=== PATIENT | female | born 1950 | race Caucasian/White ===

== ENCOUNTER 2022-01-05 10:56 | Inpatient (IN) | payer OTHER ==
--- OUTSIDE RECORDS SUMMARY | 2022-01-05 10:59 | XMS REPORT | Continuity of Care Document ---
:1950 Author Organization [facility] t Address [address] [place] [address] Care Team Providers Name Role Phone Edna Melvin Attending Clinician Unavailable Problems This patient has no known problems. Allergies, Adverse Reactions, Alerts This patient has no known allergies or adverse reactions. Medications Ordered Filled Start Stop Current Ordering Indication Dosage Frequency Signature Comments Components Source Medication Medication Date Date Medication? Clinician (SIG) Name Name Fluconazole Fluconazole Edna Melvin 1 tablet Common 11-13 [facility] 00:00: 00:00 - [facility] 00 :00 [facility] Procedures This patient has no known procedures. Encounters Start End Encounter Admission Attending Care Care Encounter Source Date/Time Date/Time Type Type Clinicians Facility Department ID 2021-06-09 Outpatient Edna Melvin [facility] [id number] Common 11:28:24 [id number] [facility] 2021-06-09 [facility] [id number] 2 Common 11:18:11 [id number] [facility] 2020-10-23 2020-10-23 Outpatient [facility] [id number] Common 00:00:00 00:00:00 [facility] 2019-11-14 2019-11-14 [facility] [id number] Common 15:31:00 15:31:00 [facility] 2019-11-07 2019-11-07 [facility] [id number] Common 10:20:00 10:20:[address] [facility] 2019-11-05 2019-11-05 [facility] [id number] Common 08:50:00 08:50:[address] [facility] 2018-11-29 2018-11-29 [facility] [id number] Common 15:00:00 15:00:[address] [facility] 2018-04-17 2018-04-17 [facility] [id number] Common 09:49:00 09:49:[address] [facility] 2018-03-28 2018-03-28 [facility] [id number] Common 14:00:00 14:00:[address] [facility] 2018-01-02 2018-01-02 [facility] [id number] Common 15:00:00 15:00:[address] [facility] 2017-11-01 2017-11-01 [facility] [id number] Common 14:45:00 14:45:[address] [facility] Results This patient has no known results.
[2022-01-05] MEDS ORDERED: MORPHINE 4 MG/ML SYR ONE ×2 (12:30→15:46)
[2022-01-05] MEDS ORDERED: ONDANSETRON 4 MG/2 ML VIAL ONE ×2 (12:30→15:46)
[2022-01-05 12:50] LABS: Absolute Lymphocytes (CBC) 1.5 K/uL (0.7-4.9); Hematocrit 38.5 % (36.0-45.0); Lymphocytes % 19.3 % (15.3-44.8); MCV 85.8 fL (80-100); MPV 8.1 fL (7.6-11.3); RBC Red Blood Cell Count 4.49 M/uL (3.86-4.86)
[2022-01-05 13:03] LABS: Protime INR 0.97
--- NOTE | 2022-01-05 13:07 | RAD REPORT ---
EXAM DESCRIPTION: RAD - Chest Single View - 01/05/2022 12:57 pm CLINICAL HISTORY: edema COMPARISON: No comparisons FINDINGS: Lines: None. Lungs: No evidence of edema or pneumonia. Pleural: No significant pleural effusions or pneumothorax. Cardiac: The heart size is within normal limits. Bones: No acute fractures. Other: Bilateral hilar fullness, right greater than left. IMPRESSION: No acute cardiopulmonary disease. Hilar fullness, right greater than left. Consider ches t CT for further evaluation.
--- NOTE | 2022-01-05 13:51 | RAD REPORT ---
EXAM DESCRIPTION: US - Extrem Venous W Compress Boyd - 01/05/2022 1:42 pm CLINICAL HISTORY: SWELLING COMPARISON: No comparisons TECHNIQUE: Real-time sonographic evaluation of the lower extremity deep venous systems was performed using color Doppler, grayscale, and compression. FINDINGS: Bilateral lower extremities. Normal compressibility, flow augmentation, phasic flow and spontaneous flow is identified in both the left and right lower extremity deep venous systems. No intraluminal filling defects seen. IMPRESSION: No DVT in either lower extremity.
[2022-01-05 14:01] LABS: ALT/SGPT < 10 U/L (12-78); AST/SGOT 13 U/L (15-37); Alkaline Phosphatase 51 U/L (45-117); BUN Blood Urea Nitrogen 10 mg/dL (7-18); Bicarbonate 28 mmol/L (21-32); Bilirubin Direct 0.2 mg/dL (0-0.2); Bilirubin Total 0.7 mg/dL (0.2-1.0); Glomerular Filtration Rate 99 ml/min (=/>90); Glucose Level 107 mg/dL (74-106); Magnesium 2.2 mg/dL (1.8-2.4); NT PRO-BNP 186 pg/mL (<125); Potassium 3.7 mmol/L (3.5-5.1); Sodium Level 137 mmol/L (136-145); Troponin High Sensitivity 24.1 pg/mL (<58.9)
[2022-01-05 14:32] LABS: Urine Blood Trace-intact (Negative); Urine Glucose Negative (Negative); Urine Protein Negative (Negative); Urine Specific Gravity 1.015 (1.005-1.030); Urine pH 6.5 (5.0-7.0)
[2022-01-05] MEDS ORDERED: FUROSEMIDE 20 MG/ 2ML VIAL ONE (15:32)
--- NOTE | 2022-01-05 16:28 | ER ---
Nurse's Notes [facility] Name: Karyn Osorio Age: 71 yrs Sex: Female : 1950 Arrival Date: 01/05/2022 Time: 10:58 Bed 14 Private MD: Edna Melvin Diagnosis: Edema of the Legs Bilaterally;UTI Presentation: 01/05 11:37 Chief complaint: Patient states: she has been having swelling in her lower legs. it is ap3 reported the legs began swelling over some time, however the swelling increased significantly overnight. Coronavirus screen: At this time, the client does not indicate any symptoms associated with coronavirus-19. Ebola Screen: No symptoms or risks identified at this time. Initial Sepsis Screen: Does the patient meet any 2 criteria? No. Patient's initial sepsis screen is negative. Does the patient have a suspected source of infection? No. Patient's initial sepsis screen is negative. Risk Assessment: Do you want to hurt yourself or someone else? Patient reports no desire to harm self or others. Onset of symptoms was January 05, 2022. 11:37 Method Of Arrival: Wheelchair ap3 11:40 Acuity: MARVIN 3 ap3 Triage Assessment: 11:40 General: Appears in no apparent distress. Behavior is calm, cooperative. Pain: ap3 Complains of pain in right leg and left leg. Neuro: Level of Consciousness is awake, alert, Oriented to person, place, time, situation, Speech is normal. Cardiovascular: Patient's skin is warm and dry. Respiratory: Airway is patent Respiratory effort is even, unlabored. Musculoskeletal: Swelling present in right leg and left leg. Historical: - Allergies: 11:39 No Known Allergies; ap3 - PMHx: 11:39 None; ap3 - Immunization history:: Client reports receiving the 2nd dose of the Covid vaccine. - Social history:: Smoking status: Patient denies any tobacco usage or history of. Screenin:27 Abuse screen: Denies threats or abuse. Nutritional screening: No deficits noted. ap3 Tuberculosis screening: No symptoms or risk factors identified. Fall Risk None identified. Assessment: 12:00 Reassessment: No changes from previously documented assessment. Patient and/or family jg9 updated on plan of care and expected duration. Pain level reassessed. Patient is alert, oriented x 3, equal unlabored respirations, skin warm/dry/pink. 13:00 Reassessment: Patient and/or family updated on plan of care and expected duration. Pain jg9 level reassessed. Patient is alert, oriented x 3, equal unlabored respirations, skin warm/dry/pink. Patient states feeling better. Patient states symptoms have improved. 14:00 Reassessment: Patient and/or family updated on plan of care and expected duration. Pain jg9 level reassessed. Patient is alert, oriented x 3, equal unlabored respirations, skin warm/dry/pink. patient reports pain is starting to return. 15:00 Reassessment: Patient and/or family updated on plan of care and expected duration. Pain jg9 level reassessed. Patient is alert, oriented x 3, equal unlabored respirations, skin warm/dry/pink. Patient reports that she does not want to go home she can't take care of herself. 22:15 Reassessment: Patient transferred via hospital bed to room 425, report given to Faizan fong RN, patient and family verbalize understanding. Pt stable.. Vital Signs: 11:37 Pulse 86; Resp 17; Temp 98.3; Pulse Ox 98% ; Weight 83.91 kg; Height 5 ft. (152.40 cm); ap3 11:40 BP 143 / 68; ap3 12:45 BP 132 / 68; Pulse 86; Resp 17 S; Pulse Ox 97% on R/A; Pain 7/10; jg9 13:00 BP 146 / 74; Pulse 89; Resp 18; Pulse Ox 98% on R/A; jg9 14:30 BP 145 / 97; Pulse 90; Resp 16 S; Pulse Ox 99% ; Pain 5/10; jg9 17:00 BP 115 / 72; Pulse 91; Pulse Ox 96% on R/A; Pain 5/10; jg9 18:00 BP 118 / 56; Pulse 94; Resp 15 S; Pulse Ox 93% on R/A; aa9 22:02 BP 112 / 61; Pulse 84; Resp 15 S; Pulse Ox 94% on R/A; aa9 11:37 Body Mass Index 36.13 (83.91 kg, 152.40 cm) ap3 ED Course: 10:58 Patient arrived in ED. as 10:58 Edna Melvin MD is Private Physician. as 11:27 Arm band placed on right wrist. ap3 11:30 Triage completed. ap3 11:41 Patient has correct armband on for positive identification. Adult w/ patient. ap3 11:52 Shayne Paz MD is Attending Physician. kdr 11:52 Raghavendra Mclaughlin PA is PHCP. jmm 11:54 Samina Neff, RN is Primary Nurse. jg9 12:25 Inserted saline lock: 22 gauge in right antecubital area, using aseptic technique. jg9 Blood collected. 12:59 XRAY Chest (1 view) In Process Unspecified. EDMS 13:44 US Extremity Venous W Compression Boyd In Process Unspecified. EDMS 16:27 Cresencio Garbre is Hospitalizing Provider. m 18:30 Hospitalizing Provider role handed off by Cresencio Garber [facility] 18:30 Rivera Cedeño MD is Hospitalizing Provider. m 22:02 No provider procedures requiring assistance completed. aa9 22:13 Patient admitted, IV remains in place. aa9 Administered Medications: 12:30 Drug: morphine 4 mg Route: IVP; Infused Over: 4 mins; Site: right antecubital; jg9 13:30 Follow up: Response: No adverse reaction; Pain is decreased jg9 12:30 Drug: Zofran (Ondansetron) 4 mg Route: IVP; Site: right antecubital; jg9 14:38 Follow up: Response: No adverse reaction jg9 15:26 Drug: Lasix (furosemide) 20 mg Route: IVP; Site: right antecubital; jg9 17:04 Follow up: Response: No adverse reaction jg9 17:04 Drug: Rocephin (cefTRIAXone) 1 grams Route: IV; Rate: calculated rate; Site: right jg9 antecubital; 22:14 Follow up: Response: No adverse reaction; IV Status: Completed infusion aa9 17:05 Drug: morphine 4 mg {Note: RASS-0 pain 7/10 bilateral lower legs.} Route: IVP; Infused jg9 Over: 4 mins; Site: right antecubital; 22:13 Follow up: Response: No adverse reaction aa9 17:05 Drug: Zofran (Ondansetron) 4 mg Route: IVP; Site: right antecubital; jg9 22:03 Follow up: Response: No adverse reaction aa9 Medication: 22:12 VIS not applicable for this client. aa9 Outcome: 16:28 Decision to Hospitalize by Provider. derick 22:12 Admitted to Med/surg accompanied by kristina, via stretcher, Report called to Faizan MURPHY aa9 22:12 Condition: stable 22:12 Discharge instructions given to patient, family, Instructed on the need for admit, Demonstrated understanding of instructions, follow-up care. 22:16 Patient left the ED. aa9 Signatures: Dispatcher [employer] EDMS Shayne Paz MD MD kdr Mickail, Joel, PA PA jmm Martinez, Amelia as Prokisch, Amanda, RN RN ap3 Samina Neff RN RN jg9 Ximena Browning RN RN aa9 Corrections: (The following items were deleted from the chart) 11:23 Chief complaint: Patient states: she is having left abdominal and right flank ap3 pain. patient states the pain started about a week ago, however the pain has gotten increasingly worse. ap3 11:23 Coronavirus screen: At this time, the client does not indicate any symptoms ap3 associated with coronavirus-19. ap3 11:23 Ebola Screen: No symptoms or risks identified at this time. ap3 ap3 11:23 Initial Sepsis Screen: Does the patient meet any 2 criteria? No. Patient's ap3 initial sepsis screen is negative. Does the patient have a suspected source of infection? No. Patient's initial sepsis screen is negative. ap3 11:23 Risk Assessment: Do you want to hurt yourself or someone else? Patient reports no ap3 desire to harm self or others. ap3 : 11:23 Onset of symptoms was December 29, 2021 ap3 ap3 11:23 Method Of Arrival: Ambulatory ap3 ap3 11:23 Pulse 106bpm; Resp 18bpm; Pulse Ox 100%; Temp 98.2F; 84.37 kg; Height 5 ft. 1 ap3 in.; BMI: 35.1; ap3 11:27 BP 198 / 122 Manual; ap3 ap3 11:27 Acuity: MARVIN 2 ap3 ap3 11:25 Allergies: Sulfa (Sulfonamide Antibiotics); ap3 ap3 11:25 PMHx: Hypertensive disorder; ap3 ap3 11:25 PMHx: Lupus erythematosus; ap3 ap3 11:25 PMHx: CAD; ap3 ap3 11:25 Immunization history: Client reports receiving the 2nd dose of the Covid vaccine, ap3 ap3 11:25 Social history: Smoking status: Patient/guardian denies using tobacco, ap3 ap3 11:26 Social history: Patient uses street drugs, marijuana, ap3 ap3 11:26 General: Appears uncomfortable, Behavior is anxious, restless, ap3 ap3 11:26 Pain: Complains of pain in left lower quadrant Pain radiates to right low back ap3ap3 11:26 Neuro: Level of Consciousness is awake, alert, obeys commands, Oriented to ap3 person, place, time, situation, Speech is normal, ap3 11:26 Cardiovascular: Patient's skin is warm and dry. ap3 ap3 11:26 Respiratory: Airway is patent Respiratory effort is even, unlabored, Respiratory ap3 pattern is regular, symmetrical, ap3 14:40 13:00 Reassessment: Patient and/or family updated on plan of care and expected jg9 duration. Pain level reassessed. Patient is alert, oriented x 3, equal unlabored respirations, skin warm/dry/pink. jg9 14:40 12:45 BP 132 / 68; Pulse 86bpm; Resp 17bpm; Spontaneous; Pulse Ox 97% RA; jg9 jg9
--- NOTE | 2022-01-05 16:29 | EDPHYS ---
Physician Documentation [facility] Name: Karyn Osorio Age: 71 yrs Sex: Female : 1950 Arrival Date: 01/05/2022 Time: 10:58 Bed 14 Private MD: Edna Melvin ED Physician Shayne Paz HPI: 01/05 12:08 This 71 yrs old Female presents to ER via Wheelchair with complaints of Leg Swelling, jmm Trouble Walking. 12:08 The patient presents with swelling. Onset: The symptoms/episode began/occurred jmm gradually. This is a 71-year-old female with history of Parkinson's the presents emerged department with complaints of bilateral lower leg swelling beginning approximately 6 weeks ago but intensifies over the past day. Patient now is unable to walk. Denies chest pain or shortness of breath. Patient is currently taking carbidopa for Parkinson's.. Historical: - Allergies: 11:39 No Known Allergies; ap3 - PMHx: 11:39 None; ap3 - Immunization history:: Client reports receiving the 2nd dose of the Covid vaccine. - Social history:: Smoking status: Patient denies any tobacco usage or history of. ROS: 12:08 Constitutional: Negative for fever, chills, and weight loss, Cardiovascular: Negative jmm for chest pain, palpitations, and edema, Respiratory: Negative for shortness of breath, cough, wheezing, and pleuritic chest pain. 12:08 MS/extremity: Positive for swelling. 12:08 All other systems are negative. Exam: 12:08 Constitutional: This is a well developed, well nourished patient who is awake, alert, jmm and in no acute distress. Head/Face: atraumatic. Eyes: EOMI, no conjunctival erythema appreciated ENT: Moist Mucus Membranes Neck: Trachea midline, Supple Chest/axilla: Normal chest wall appearance and motion. Cardiovascular: Regular rate and rhythm. No edema appreciated Respiratory: Normal respirations, no respiratory distress appreciated Abdomen/GI: Non distended Back: Normal ROM Skin: General appearance color normal 12:08 Musculoskeletal/extremity: Bilateral swelling noted and edema, pitting edema appreciated bilaterally, full dorsalis pedis pulse bilaterally, compartments are soft, mildly tender to palpation, neurovascular intact. 12:08 Skin: Appearance: Color: normal in color, abscess. 12:08 Neuro: Orientation: is normal, Mentation: is normal, Memory: is normal. 12:08 Psych: Behavior/mood is pleasant, cooperative. Vital Signs: 11:37 Pulse 86; Resp 17; Temp 98.3; Pulse Ox 98% ; Weight 83.91 kg; Height 5 ft. (152.40 cm); ap3 11:40 BP 143 / 68; ap3 12:45 BP 132 / 68; Pulse 86; Resp 17 S; Pulse Ox 97% on R/A; Pain 7/10; jg9 13:00 BP 146 / 74; Pulse 89; Resp 18; Pulse Ox 98% on R/A; jg9 14:30 BP 145 / 97; Pulse 90; Resp 16 S; Pulse Ox 99% ; Pain 5/10; jg9 17:00 BP 115 / 72; Pulse 91; Pulse Ox 96% on R/A; Pain 5/10; jg9 18:00 BP 118 / 56; Pulse 94; Resp 15 S; Pulse Ox 93% on R/A; aa9 22:02 BP 112 / 61; Pulse 84; Resp 15 S; Pulse Ox 94% on R/A; aa9 11:37 Body Mass Index 36.13 (83.91 kg, 152.40 cm) ap3 MDM: 12:08 Patient medically screened. [facility] 16:26 Data reviewed: vital signs, nurses notes. Counseling: I had a detailed discussion with dercik the patient and/or guardian regarding: the historical points, exam findings, and any diagnostic results supporting the discharge/admit diagnosis, lab results, radiology results, the need for further work-up and treatment in the hospital. ED course: Labs and imaging studies were discussed with the patient. Patient has concern she will be unable to ambulate at home due to swelling. states he is unable to take care of her. I discussed the patient with nurse practitioner Gautam whom accepted the patient Dr. Jcarlos rincon. 01/05 12:09 Order name: Basic Metabolic Panel; Complete Time: 14:10 [facility] 01/05 12:09 Order name: CBC with Diff; Complete Time: 13:15 [facility] 01/05 12:09 Order name: LFT's; Complete Time: 14:10 [facility] 01/05 12:09 Order name: Magnesium; Complete Time: 14:10 [facility] 01/05 12:09 Order name: NT PRO-BNP; Complete Time: 14:10 [facility] 01/05 12:09 Order name: PT-INR; Complete Time: 13:15 [facility] 01/05 12:09 Order name: Troponin HS; Complete Time: 14:10 [facility] 01/05 14:33 Order name: Urine Dipstick-Ancillary; Complete Time: 15:04 [facility] 01/05 16:19 Order name: SARS RAPID; Complete Time: 17:15 [facility] 01/05 17:13 Order name: Urinalysis [facility] 01/05 17:13 Order name: Basic Metabolic Panel [facility] 01/05 17:13 Order name: Basic Metabolic Panel [facility] 01/05 17:13 Order name: CBC with Automated Diff [facility] 01/05 17:13 Order name: CBC with Automated Diff [facility] 01/05 12:09 Order name: XRAY Chest (1 view); Complete Time: 13:15 [facility] 01/05 12:09 Order name: EKG; Complete Time: 12:10 [facility] 01/05 12:11 Order name: US Extremity Venous W Compression Boyd; Complete Time: 13:55 [facility] 01/05 17:13 Order name: Heart Healthy [facility] 01/05 17:59 Order name: Echo with Doppler [facility] 01/05 18:06 Order name: Hemoglobin A1c [facility] 01/05 18:06 Order name: Lipid Profile [facility] 01/05 18:06 Order name: T4 Free [facility] 01/05 18:06 Order name: Thyroid Stimulating Hormone [facility] 01/05 18:10 Order name: Thorax Wo Con [facility] 01/05 12:09 Order name: Cardiac monitoring; Complete Time: 12:17 [facility] 01/05 12:09 Order name: EKG - Nurse/Tech; Complete Time: 12:17 [facility] 01/05 12:09 Order name: IV Saline Lock; Complete Time: 12:55 [facility] 01/05 12:09 Order name: Labs collected and sent; Complete Time: 12:55 [facility] 01/05 12:09 Order name: O2 Sat Monitoring; Complete Time: 12:17 [facility] 01/05 13:05 Order name: Labs - recollect needed: recollect green,lavender and blue top; Complete bd Time: 13:30 01/05 14:38 Order name: Urine Dipstick-Ancillary (obtain specimen); Complete Time: 14:38 jg9 Administered Medications: 12:30 Drug: morphine 4 mg Route: IVP; Infused Over: 4 mins; Site: right antecubital; jg9 13:30 Follow up: Response: No adverse reaction; Pain is decreased jg9 12:30 Drug: Zofran (Ondansetron) 4 mg Route: IVP; Site: right antecubital; jg9 14:38 Follow up: Response: No adverse reaction j9 15:26 Drug: Lasix (furosemide) 20 mg Route: IVP; Site: right antecubital; jg9 17:04 Follow up: Response: No adverse reaction jg9 17:04 Drug: Rocephin (cefTRIAXone) 1 grams Route: IV; Rate: calculated rate; Site: right jg9 antecubital; 22:14 Follow up: Response: No adverse reaction; IV Status: Completed infusion aa9 17:05 Drug: morphine 4 mg {Note: RASS-0 pain 7/10 bilateral lower legs.} Route: IVP; Infused jg9 Over: 4 mins; Site: right antecubital; 22:13 Follow up: Response: No adverse reaction aa9 17:05 Drug: Zofran (Ondansetron) 4 mg Route: IVP; Site: right antecubital; jg9 22:03 Follow up: Response: No adverse reaction aa9 Disposition Summary: 01/05/22 16:28 Hospitalization Ordered Hospitalization Status: Observation [facility] Location: Telemetry/[facility] (Inpatient) [facility] Condition: Stable [facility] Problem: new [facility] Symptoms: are unchanged [facility] Bed/Room Type: Standard [facility] Provider: Rivera Cedeño(01/05/22 18:30) [facility] Room Assignment: 425(01/05/22 21:42) eb1 Diagnosis - Edema of the Legs Bilaterally jmm - UTI [facility] Forms: - Medication Reconciliation Form [facility] - SBAR form [facility] Addendum: 01/07/2022 11:20 Co-signature as Attending Physician, Shayne Paz MD I agree with the assessment and k dr plan of care. Signatures: Dispatcher [employer] EDMS Annalisa Jordan Kevin, MD MD kdr Mickail, Joel, PA PA m Lizette Bello RN RN ap3 Lorie Frausto RN RN eb1 Samina Neff RN RN jg9 Ximena Browning RN aa9 Corrections: (The following items were deleted from the chart) 01/05 11:32 11:25 Allergies: Sulfa (Sulfonamide Antibiotics); ap3 ap3 11 11:25 PMHx: Hypertensive disorder; ap3 ap3 11 11:25 PMHx: Lupus erythematosus; ap3 ap3 11:25 PMHx: CAD; ap3 ap3 11: 11:25 Immunization history: Client reports receiving the 2nd dose of the Covid vaccine, ap3 ap3 11: 11:25 Social history: Smoking status: Patient/guardian denies using tobacco, ap3 ap3 11 11:26 Social history: Patient uses street drugs, marijuana, ap3 ap3 14:26 12:09 Oxygen Per Protocol ordered. derick jg9 18:30 16:28 Cresencio Garber 21:42 16:28 [facility] eb1
[2022-01-05] MEDS ORDERED: CEFTRIAXONE 1000 MG/VIAL ONE (16:53)
[2022-01-05] MEDS ORDERED: ACETAMINOPHEN 500 MG TAB PO PRN (17:07)
[2022-01-05] MEDS ORDERED: ONDANSETRON 4 MG/2 ML VIAL IV PRN (17:07)
[2022-01-05 17:12] LABS: SARS-CoV-2 Antigen Rapid Res Negative (Negative)
[2022-01-05] MEDS: ASPIRIN EC 81 MG TAB PO SCH (18:00)
--- NOTE | 2022-01-05 18:09 | P.HP ---
Certification for Inpatient Patient admitted to: Observation With expected LOS: <2 Midnights Patient will require the following post-hospital care: None Practitioner: I am a practitioner with admitting privileges, knowledge of patient current condition, hospital course, and medical plan of care. Services: Services provided to patient in accordance with Admission requirements found in Title 42 Section 412.3 of the Code of Federal Regulations Patient History Date of Service: 01/05/22 Reason for admission: BLE History of Present Illness: Patient is a 71-year-old female with a past medical history significant for Parkinson's disease, obesity who presents with complaint of bilateral lower extremity swelling that has been ongoing for approximately 6 weeks. Patient also reports bilateral lower extremity pain. Patient reports difficulty walking due to pain in her lower extremities. Redness and warmth noted on bilateral upper extremities. Patient rated pain as 10/10 and described pain as aching in quality. Patient reports associated signs and symptoms of dysuria . Patient denies any other signs and symptoms. Symptoms are aggravated by weight bearing\exertion and relieved by nothing. Patient decided to present to the hospital due to worsening symptoms. Allergies No Known Allergies Allergy (Verified 01/05/22 18:21) Home medications list reviewed: Yes Home Medications: Carbidopa/Levodopa [Carbidopa-Levo 25-100 mg Odt] 25 - 100 tab PO TID 01/05/22 Pramipexole [Mirapex*] 1 tab PO TID 01/05/22 - Past Medical/Surgical History -: Parkinson's disease -: Obesity Past Surgical History: Reviewed- Non-Contributory - Family History Family History: Reviewed- Non-Contributory - Social History Smoking Status: Never smoker Alcohol use: No CD- Drugs: No Caffeine use: Yes Place of Residence: Home Review of Systems General: Unremarkable Eyes: Unremarkable ENT: Unremarkable Respiratory: Unremarkable Cardiovascular: Edema Gastrointestinal: Unremarkable Genitourinary: Dysuria Musculoskeletal: Pedal edema, Other (Difficulty walking) Integumentary: Other (BLE redness) Neurological: Unremarkable Lymphatics: Unremarkable Physical Examination - Physical Exam General: Alert, In no apparent distress, Oriented x3 HEENT: Atraumatic, Normocephalic, PERRLA Neck: Supple, 2+ carotid pulse no bruit, JVD not distended Respiratory: Clear to auscultation bilaterally, Normal air movement Cardiovascular: Normal pulses, Normal S1 S2, Edema Capillary refill: <2 Seconds Gastrointestinal: Normal bowel sounds, Soft and benign Musculoskeletal: No clubbing, No contractures, No warmth, Swelling, Erythema Integumentary: No rashes, No breakdown, No significant lesion, Tenderness/swelling, Erythema Neurological: Normal speech, Normal tone, Abnormal gait Lymphatics: No axilla or inguinal lymphadenopathy - Studies Laboratory Data (last 24 hrs) 01/05/22 13:28: Sodium 137, Potassium 3.7, BUN 10, Creatinine 0.52 L, Glucose 107 H, Magnesium 2.2, Total Bilirubin 0.7, AST 13 L, ALT < 10 L, Alkaline Phosphatase 51 01/05/22 12:35: PT 10.7, INR 0.97 01/05/22 12:35: WBC 7.70, Hgb 13.0, Hct 38.5, Plt Count 318 Assessment and Plan - Plan --Bilateral lower extremity edema. Echocardiogram pending to rule out CHF. Patient placed on Lasix IV. Daily weight and strict I/O. --Bilateral lower extremity cellulitis. Blood cultures pending. Patient placed on antibiotics --Acute pain.. We will manage pain on current pain medication regimen. --Obesity. Likely secondary to sedentary lifestyle and excess calories intake. Patient counseled on weight reduction, diet and excise therapy. --Parkinson's disease. Continue home medications. --UTI POA. Continue antibiotics. Urine cultures pending. -- DVT prophylaxis with heparin subQ. Discharge Plan: Home Plan to discharge in: 48 Hours - Advance Directives Does patient have a Living Will: No Does patient have a Durable POA for Healthcare: No - Code Status/Comfort Care Code Status Assessed: Yes Code Status: Full Code Physician Review: Patient Assessed, Agree with Above Assessment and Plan Critical Care: No
[2022-01-05 19:30] LABS: Thyroid Stimulating Hormone 3.41 uIU/mL (0.360-3.740)
--- NOTE | 2022-01-05 19:59 | RAD REPORT ---
EXAM DESCRIPTION: CT - Thorax Wo Con - 01/05/2022 6:29 pm CLINICAL HISTORY: Bilateral hilar fullness COMPARISON: No comparisons FINDINGS: Chest Wall: No suspicious thyroid nodules or pathologic lymphadenopathy. Lungs: No acute abnormality. Pleura: No significant effusions or pneumothorax. Mediastinum/robbie: No pathologic lymphadenopathy. Pulmonary arteries/Aorta: Limited evaluation without contrast. No aortic aneurysm. Mild enlargement o f the main pulmonary arteries. Heart: No significant pericardial effusion. Mild cardiomegaly. Multi-vessel coronary artery disease. Upper abdomen: No acute abnormality. Cholecystectomy. Bones: No acute abnormality. All CT scans are performed using dose optimization technique as appropriate and may include automated exposure control or mA/KV adjustment according to patient size. IMPRESSION: No acute findings within the chest. Hilar fullness likely combination of prominent pulmo nary arteries and configuration of the patient's robbie. No lymphadenopathy.
[2022-01-05] MEDS: HYDROCODONE/APAP 5/325 MG TAB PO PRN (20:49)
[2022-01-05] MEDS ORDERED: HYDROCODONE/APAP 5/325 MG TAB ONE (21:00)
[2022-01-05] MEDS: PRAMIPEXOLE 0.25 MG TAB PO SCH (21:00)
[2022-01-05] MEDS ORDERED: HOME MED 1 EA UNK (Carbidopa/Levodopa [Carbidopa-Levo 25-100 Mg Odt] Tab.Rapdis) PO SCH (21:00)
[2022-01-05] MEDS: CARBIDOPA/LEVODOPA 25/100 TAB PO SCH (21:00)
[2022-01-05] MEDS ORDERED: ASPIRIN EC 81 MG TAB PO ONE (21:18)
[2022-01-06] MEDS: CLINDAMYCIN 600MG/D5W 600 MG/50 ML BAG IV SCH ×2 (01:00→08:41)
[2022-01-06] MEDS ORDERED: CLINDAMYCIN 600MG/D5W 600 MG/50 ML BAG IV ONE (01:09)
[2022-01-06] MEDS: HEPARIN 5000 UNIT/ML 1 ML VIAL SQ SCH ×3 (01:13→17:11)
[2022-01-06 02:30] LABS: Urine Bilirubin Negative (Negative); Urine Blood 1+ (Negative); Urine Clarity Clear (Clear); Urine Color Yellow (Yellow); Urine Glucose Negative (Negative); Urine Protein Negative (Negative); Urine Urobilinogen 0.2 mg/dL (0.2-1.0); Urine pH 5.5 (5.0-7.0)
[2022-01-06 02:55] LABS: Urine Bacteria 20-50 /HPF (<20); Urine RBC <5 /HPF (None Seen)
[2022-01-06 05:51] LABS: Absolute Lymphocytes (CBC) 1.2 K/uL (0.7-4.9); Hematocrit 38.2 % (36.0-45.0); Lymphocytes % 13.6 % (15.3-44.8); MCV 86.4 fL (80-100); MPV 8.4 fL (7.6-11.3); RBC Red Blood Cell Count 4.42 M/uL (3.86-4.86)
[2022-01-06 05:54] LABS: Potassium 3.5 mmol/L (3.5-5.1)
[2022-01-06] MEDS: HYDROCODONE/APAP 5/325 MG TAB PO PRN ×3 (06:23→19:41)
[2022-01-06] MEDS: PRAMIPEXOLE 0.25 MG TAB PO SCH ×3 (08:39→21:08)
[2022-01-06] MEDS: CARBIDOPA/LEVODOPA 25/100 TAB PO SCH ×3 (08:39→21:08)
[2022-01-06] MEDS: FUROSEMIDE 40 MG/4 ML VIAL IV SCH ×2 (08:40→17:11)
[2022-01-06] MEDS: ASPIRIN EC 81 MG TAB PO SCH (08:40)
[2022-01-06] MEDS ORDERED: POTASSIUM CL SA 10 MEQ TAB PO ONE (09:00)
[2022-01-06] MEDS ORDERED: CEFTRIAXONE 1,000 MG in NA CHLORIDE 0.9% 50 ML IVPB SCH (09:00)
[2022-01-06] MEDS: CEFEPIME 2 GM in NA CHLORIDE 0.9% 100 ML IV SCH (12:21)
--- NOTE | 2022-01-06 15:13 | EKG ---
Test Date: 2022-01-05 Test Time: 12:11:57 Desktop Support Technician: FRANDY MEASUREMENT RESULTS: Intervals: Rate: 89 IL: 228 QRSD: 120 QT: 392 QTc: 476 [place]: P: 76 [place]: 228 QRS: -48 T: 41 INTERPRETIVE STATEMENTS: Sinus rhythm with 1st degree AV block Left anterior fascicular block Left ventricular hypertrophy with QRS widening Nonspecific T wave abnormality Abnormal ECG No previous ECG available for comparison Electronically Signed On 01-06-22 15:12:17 CDT by Josemanuel Freeman
[2022-01-07] MEDS: CEFEPIME 2 GM in NA CHLORIDE 0.9% 100 ML IV SCH (01:22)
[2022-01-07] MEDS: HEPARIN 5000 UNIT/ML 1 ML VIAL SQ SCH ×2 (01:23→10:06)
--- NOTE | 2022-01-07 02:46 | P.PN ---
Date of Service: 01/06/22 Subjective: Pt patient still having significant lower extremity weakness. Edema has improved quite significantly. Neurology consultation pending. Physical therapy evaluation continue with antibiotic therapy for UTI. Physical Examination - Vitals reviewed - Physical Exam General: Alert, In no apparent distress, Oriented x3 Respiratory: Clear to auscultation bilaterally, Normal air movement Cardiovascular: Normal pulses, Normal S1 S2, Edema Gastrointestinal: Normal bowel sounds, Soft and benign Musculoskeletal: No clubbing, No contractures, No warmth, Swelling, Integumentary: No rashes, No breakdown, No significant lesion, Tenderness/swelling Neurological: generalized weakness Assessment and Plan - Plan --Bilateral lower extremity edema. Echocardiogram pending to rule out CHF. Patient placed on Lasix IV. Daily weight and strict I/O. --Bilateral lower extremity weakness; PT evaluation; L-spine. --Parkinson's disease. Continue home medications. --UTI; Continue antibiotics. Urine cultures pending. --DVT prophylaxis with heparin subQ. Discharge Plan: Home Plan to discharge in: 48 Hours - Advance Directives Does patient have a Living Will: No Does patient have a Durable POA for Healthcare: No - Code Status/Comfort Care Code Status Assessed: Yes Code Status: Full Code Physician Review: Patient Assessed, Agree with Above Assessment and Plan Critical Care: No
[2022-01-07] MEDS ORDERED: dexAMETHasone 4 MG/ML VIAL IV SCH (06:00)
[2022-01-07 06:19] LABS: Absolute Lymphocytes (CBC) 1.8 K/uL (0.7-4.9); Hematocrit 38.9 % (36.0-45.0); Lymphocytes % 22.7 % (15.3-44.8); MCV 83.8 fL (80-100); MPV 8.5 fL (7.6-11.3); RBC Red Blood Cell Count 4.64 M/uL (3.86-4.86)
[2022-01-07 06:32] LABS: Potassium 3.2 mmol/L (3.5-5.1)
[2022-01-07] MEDS ORDERED: POTASSIUM 25 MEQ EFFERV TAB PO ONE ×2 (09:00→19:00)
[2022-01-07] MEDS: FUROSEMIDE 40 MG/4 ML VIAL IV SCH (09:00)
[2022-01-07] MEDS: PRAMIPEXOLE 0.25 MG TAB PO SCH ×3 (10:06→20:26)
[2022-01-07] MEDS: ASPIRIN EC 81 MG TAB PO SCH (10:06)
[2022-01-07] MEDS: CARBIDOPA/LEVODOPA 25/100 TAB PO SCH ×3 (10:06→20:26)
[2022-01-07] MEDS: SIMETHICONE 80 MG TAB PO PRN (10:26)
--- NOTE | 2022-01-07 10:30 | ECHO ---
HEIGHT: 0 ft 5 in WEIGHT: 196 lb 3.2 oz DATE OF STUDY: 01/06/[address]: Dana Workman 2-DIMENSIONAL: YES M.MODE: YES DOPPLER: YES COLOR FLOW: YES TDS: NO PORTABLE: YES DEFINITY: NO BUBBLE STUDY: NO DIAGNOSIS: RULE OUT CONGESTIVE HEART FAILURE CARDIAC HISTORY: CATHERIZATION: NO SURGERY: NO PROSTHETIC VALVE: NO PACEMAKER: NO MEASUREMENTS (cm) DIASTOLIC (NORMALS) SYSTOLIC (NORMALS) IVSd 0.9 (0.6-1.2) LA Diam 2.5 (1.9-4.0) LVEF 56% LVIDd 3.4 (3.5-5.7) LVIDs 2.4 (2.0-3.5) %FS 28% LVPWd 1.0 (0.6-1.2) Ao Diam 2.5 (2.0-3.7) 2 DIMENSIONAL ASSESSMENT: RIGHT ATRIUM: NORMAL LEFT ATRIUM: NORMAL RIGHT VENTRICLE: NORMAL LEFT VENTRICLE: NORMAL TRICUSPID VALVE: MITRAL VALVE: NORMAL PULMONIC VALVE: NORMAL AORTIC VALVE: NORMAL PERICARDIAL EFFUSION: NONE AORTIC ROOT: NORMAL LEFT VENTRICULAR WALL MOTION: NORMAL DOPPLER/COLOR FLOW: SEE BELOW COMMENTS: NORMAL LEFT VENTRICULAR EJECTION FRACTION 55-60% WITH NORMAL WALL MOTION. MILD TRICUSPID REGURGITATION. RIGHT VENTRICULAR SYSTOLIC PRESSURE 30-33 mmHg, NORMAL. TECHNOLOGIST: Anne KRUEGER
--- NOTE | 2022-01-07 10:36 | P.PN ---
Subjective Date of Service: 01/07/22 Chief Complaint: Lower extremity weakness No change in patient's condition daughter present at the bedside apparently she has deteriorated over the past 3 weeks 3 of Parkinson's disease has ataxia so has difficulty swallowing at times and by neurologist her medication was changed recently adding to the daughter patient was self functioning until about a week ago no prior history of congestive heart failure Review of Systems General: Weakness Neurological: Weakness (Weakness of lower extremity) Physical Examination - Vital Signs Temperature: 97.7 F Blood Pressure: 166/80 Pulse: 85 Respirations: 16 Pulse Ox (%): 96 - Physical Exam General: Alert, Oriented x3 HEENT: Other Respiratory: Clear to auscultation bilaterally Cardiovascular: Normal S1 S2, Edema Gastrointestinal: Normal bowel sounds, Soft and benign Neurological: Other (Lower extremity weakness no other cranial nerve deficit) Assessment And Plan - Current Problems (Diagnosis) (1) Lower extremity edema Current Visit: Yes Status: Acute Plan: Patient is 71 years of age with a history of Parkinson's disease admitted with progressive worsening over the past 3 weeks planing of weakness of her legs unable to ambulate to that was self functioning has gotten worse and over the past week also developed lower extremity edema labs reviewed no evidence of sepsis mild hypokalemia suspect secondary to diuresis have added spironolactone lumbar spine CT is pending neurological consultation pending echo pending DC IV Lasix physical therapy vital signs otherwise stable Physician Review: Patient Assessed, Agree with Above Assessment and Plan
--- NOTE | 2022-01-07 11:09 | RAD REPORT ---
EXAM DESCRIPTION: CTSpine Lumbar Wo Con01/07/2022 7:51 am CLINICAL HISTORY: Leg numbness COMPARISON: None TECHNIQUE: Computed axial tomography lumbar spine was obtained with coronal and sagittal reconstruct ion. All CT scans are performed using dose optimization technique as appropriate and may include automated exposure control or mA/KV adjustment according to patient size. FINDINGS: No fracture is seen. No dislocation Mild anterior subluxation L5 on S1 Left lateral disc herniation L2-3. This narrows the left neural foramina. Disc bulge L3-4. Ligamentum flavum and facet hypertrophy. Mild narrowing of the thecal sac. Disc bulge and facet hypertrophy L4-5. Mild narrowing of the neural foramina bilaterally. Mild narrow ing of the thecal sac. Disc bulge and facet hypertrophy L5-S1. Thecal sac is not significantly narrowed. IMPRESSION: Left lateral disc herniation L2-3. MRI lumbar spine may be helpful for further evaluatio n
[2022-01-07] MEDS: SPIRONOLACTONE 25 MG TABLET PO SCH ×2 (11:18→20:26)
[2022-01-07 16:19] VITALS: BMI 38.3
--- NOTE | 2022-01-08 02:15 | CON ---
Date of Consultation: 01/07/2022 Reason: Parkinson's, gait failure, leg edema. History: 71-year-old lady with Parkinson's disease for several years; bradykinetic, dominant, right worse than left; has had moderately aggressive disease course over the time frame. Normally on the S inemet and Mirapex as she is taking currently 25/100 Sinemet t.i.d., Mirapex 0.25 t.i.d. Worsening s ymptoms, beginning about 6 weeks ago with worsening lower extremity edema, so we decreased the Mirape x as it can cause leg edema and we added COMT inhibitor, Ongentys, which proved to be too expensive a nd then, we switched that to Comtan, which did not really help her walking and the leg edema continue d to worsen despite the lower dose of the Mirapex, so she was back in my office just a week or 2 ago, and she was clearly more bradykinetic and worse, so we started reverting back to the prior dosing sc hedule. In the interim, legs continued to swell and she presented to the emergency department on the with exactly that complaint, worsening leg edema and difficulty walking, admitted to the hospit al. CT scan of the chest negative. Chest x-ray: Hilar fullness, negative on the CT as noted. Dopp ler: No DVT. She has been diuresing, the leg edema is better. Echo: Normal EF at 55% to 60%, norm al RV pressure. The patient cannot walk, and she cannot go home in this condition. CT of lumbar spi ne demonstrated no fracture. Left disk herniation, L2-3 with some foraminal narrowing, but she does not really have radicular symptoms. She has gait failure. Consultation was requested. Past Medical History: Parkinson's disease. Medications: Nexium, Zyrtec, Mirapex, Sinemet. Allergies: NONE. Social History: . Increasing difficulties with activities of daily living over the last 3-4 months, especially. Family History: Her mother had Parkinson's disease. Review of Systems: General: Chronically ill. Eyes: Denies. Ears, Nose, Throat: No dysarthria. No dysphagia. Cardiovascular: Leg edema. Pulmonary: Negative. GI: Nausea on 25/250 Sinemet. : Negative. Musculoskeletal: Arthralgias. Neurological: As noted. Psychiatric: She may be a little depressed or at least her mood is poor given her current situation. Endocrine: Negative. Hematologic: Negative. Physical Examination: Vital Signs: 97.5, 89, 16, 102/56. General: She is a pleasant lady, lying in bed, in no distress. She is awake, alert, oriented. No a phasia. No dysarthria. Slight masking with decreased blink rate. Ocular motion full. Visual field s full. Facial strength and sensation normal. Tongue protrudes evenly. Soft palate elevates symmet rically bilaterally. Extremities: Extremity strength is actually full, but she has [id number] generalized bradyki nesia with cogwheeling at the wrists and elbows and difficulty in initiation of movement. Sensation is intact. Reflexes are 2+. Toes are neutral. Cerebellar Exam: Demonstrates no kzedqx-[id number] ataxia. Pertinent Laboratory Data: Sedimentation rate was 4. CBC is normal. Creatinine is 0.61. A1c 5.6, glucose 124, LDL 121. Impression: Gait failure, Parkinson's disease. Plan: We will adjust the Sinemet to q.i.d. same strength. Increase the Mirapex to 0.5 t.i.d. Check MRI cervical spine, exclude superimposed compressive myelopathy generating symptom complex. Check b rain MRI, exclude superimposed structural abnormality, acute or subacute such as an infarct in the fr ontal region to explain the gait failure. Thank you for the consult. We will continue to follow with you. CLAIRE Voice ID: [id number] Report ID: [id number]
[2022-01-08 06:17] LABS: Phosphorus 2.9 mg/dL (2.5-4.9)
[2022-01-08 07:40] LABS: Potassium 3.5 mmol/L (3.5-5.1)
[2022-01-08] MEDS ORDERED: POTASSIUM CL SA 10 MEQ TAB PO ONE (08:30)
[2022-01-08] MEDS: SPIRONOLACTONE 25 MG TABLET PO SCH (09:00)
[2022-01-08] MEDS: PRAMIPEXOLE 0.25 MG TAB PO SCH ×3 (09:23→20:01)
--- NOTE | 2022-01-08 09:23 | P.PN ---
Subjective Date of Service: 01/08/22 Chief Complaint: Lower extremity weakness No change patient is still weak unable to ambulate although her swelling has been decreased seen by Dr. Espinoza Review of Systems Unremarkable Physical Examination - Vital Signs Temperature: 97 F Blood Pressure: 134/60 Pulse: 89 Respirations: 20 Pulse Ox (%): 98 - Physical Exam General: Alert, In no apparent distress, Oriented x3 Respiratory: Clear to auscultation bilaterally Cardiovascular: Regular rate/rhythm, Edema Gastrointestinal: Normal bowel sounds, Hypoactive Musculoskeletal: Other (Edema has decreased he still has significant weakness of the lower extremities) Assessment And Plan - Current Problems (Diagnosis) (1) Lower extremity edema Current Visit: Yes Status: Acute Plan: Lower extremity edema is declining mild hypercalcemia (2) Paraparesis of both lower limbs Current Visit: Yes Status: Acute Plan: Patient has weakness of both lower limbs seen by of the spine and the brain is pending and complains of claustrophobia unable to breathe we will give her a dose of Xanax prior to the procedure reduce spironolactone to 25 mg a day Physician Review: Patient Assessed, Agree with Above Assessment and Plan
[2022-01-08] MEDS: ASPIRIN EC 81 MG TAB PO SCH (09:24)
[2022-01-08] MEDS: ENOXAPARIN 40 MG/0.4 ML SQ SCH (09:24)
[2022-01-08] MEDS: HYDROCODONE/APAP 5/325 MG TAB PO PRN ×2 (09:24→20:02)
[2022-01-08] MEDS: CARBIDOPA/LEVODOPA 25/100 TAB PO SCH ×4 (09:24→20:01)
[2022-01-08] MEDS ORDERED: ALPRAZOLAM 0.25 MG TABLET PO ONE (09:35)
[2022-01-08] MEDS: LACTULOSE 20 GM/30 ML UCUP PO PRN (13:01)
[2022-01-08] MEDS ORDERED: ALPRAZOLAM 0.5 MG TABLET PO PRN (22:44)
[2022-01-09 06:30] LABS: Albumin 3.8 g/dL (3.4-5.0); Bilirubin Total 0.9 mg/dL (0.2-1.0); Potassium 3.7 mmol/L (3.5-5.1); Protein, Total 6.9 g/dL (6.4-8.2)
[2022-01-09] MEDS: SPIRONOLACTONE 25 MG TABLET PO SCH (08:56)
[2022-01-09] MEDS: CARBIDOPA/LEVODOPA 25/100 TAB PO SCH ×4 (08:56→21:53)
[2022-01-09] MEDS: PRAMIPEXOLE 0.25 MG TAB PO SCH ×3 (08:56→21:56)
[2022-01-09] MEDS: ASPIRIN EC 81 MG TAB PO SCH (08:56)
[2022-01-09] MEDS: ENOXAPARIN 40 MG/0.4 ML SQ SCH (08:57)
[2022-01-09] MEDS ORDERED: POTASSIUM CL SA 10 MEQ TAB PO ONE (09:00)
--- NOTE | 2022-01-09 09:24 | P.PN ---
Subjective Date of Service: 01/09/22 Chief Complaint: Lower extremity weakness No new change still the lower extremities are weak awaiting MRI patient is still very anxious not eating much Review of Systems General: Weakness Physical Examination - Vital Signs Temperature: 97.5 F Blood Pressure: 102/53 Pulse: 84 Respirations: 18 Pulse Ox (%): 95 - Physical Exam General: Alert, In no apparent distress, Oriented x3 Neurological: Other (Weakness of lower extremities) Assessment And Plan - Current Problems (Diagnosis) (1) Lower extremity edema Current Visit: Yes Status: Acute Plan: Has improved significantly (2) Paraparesis of both lower limbs Current Visit: Yes Status: Acute Plan: No change in paraparesis lower extremities are very weak awaiting MRI of the spine vital signs stable Physician Review: Patient Assessed, Agree with Above Assessment and Plan
[2022-01-09] MEDS ORDERED: THIAMINE 200 MG/2 ML INJ IVP ONE (15:00)
--- NOTE | 2022-01-09 16:04 | PN ---
Date of Progress Note: 01/09/2022 Time: 1410. Reason: Parkinson, gait failure. Interval History: The patient is about the same today. She is certainly not worse and definitely no t dramatically better. She is despondent. She complains of pain in the legs and dysphagia. She is not eating well. We will start some IV thiamine and consult Speech Therapy to evaluate for possible modified barium swallow. Additional imaging is pending. B12 level is normal. Physical Examination: Vital Signs: Afebrile. Vitals stable. General: She is awake, alert, oriented. HEENT: Pupils reactive. Ocular motion full. Visual taylor full. Neurologic: Strength is full, although she has very prominent, generalized bradykinesia still. She is max assist, just in bed, transfers. She can move her legs and can move her arms. There was a mor e longstanding orthopedic issue about the right shoulder. She has moderate generalized bradykinesia, worse in the leg, cogwheeling at the wrists and the elbows. Complains of pain in the legs as noted. Sensory modalities are intact, however. Reflexes are brisk 2+. Toes are neutral. Gait cannot be tested. Cerebellar exam demonstrates no ataxia. Impression: 1.Parkinson disease. 2.Gait failure. 3.Dysphagia. Plan: Increase the Mirapex to 0.75 t.i.d., continue Sinemet for the gait failure. The additional im aging is pending for the dysphagia, add thiamine, Speech Therapy evaluation. We will continue to follow with you. CLAIRE Voice ID: [id number] Report ID: [id number]
[2022-01-10 04:04] LABS: Potassium 3.7 mmol/L (3.5-5.1)
[2022-01-10] MEDS ORDERED: POTASSIUM CL SA 10 MEQ TAB PO ONE (09:00)
[2022-01-10] MEDS: PRAMIPEXOLE 0.25 MG TAB PO SCH ×3 (09:06→22:10)
[2022-01-10] MEDS: ASPIRIN EC 81 MG TAB PO SCH (09:06)
[2022-01-10] MEDS: CARBIDOPA/LEVODOPA 25/100 TAB PO SCH ×4 (09:06→22:10)
[2022-01-10] MEDS: ENOXAPARIN 40 MG/0.4 ML SQ SCH (09:07)
[2022-01-10] MEDS: THIAMINE 200 MG/2 ML INJ IVP SCH (09:07)
[2022-01-10] MEDS: SPIRONOLACTONE 25 MG TABLET PO SCH (09:07)
--- NOTE | 2022-01-10 14:34 | RAD REPORT ---
EXAM DESCRIPTION: CT - C Spine Wo Con - 01/10/2022 2:22 pm CLINICAL HISTORY: Neck pain, unable to ambulate COMPARISON: None. TECHNIQUE: Axial 2 mm thick images of the cervical spine were obtained with sagittal and coronal rec onstruction images generated and reviewed. All CT scans are performed using dose optimization technique as appropriate and may include automated exposure control or mA/KV adjustment according to patient size. FINDINGS: Asymmetry is created by left lateral tilt patient's head and neck. Cervical bodies are nor mal in height. No anterior or lateral subluxation abnormalities identified. No fracture is seen. Ther e are no pathologic bone changes identifiable. All cervical disc levels show loss in height to some d egree. This is most prominent at C5-6 and C6-7. Posterior endplate spurring and calcifications along the posterior longitudinal ligament are present. Central canal is borderline stenotic at 10-11 mm at C5-6 and C6-7. No paraspinal mass or hematoma. No gross evidence for large disc herniation or space occupying lesion of the cervical canal. CT imagi ng has significant inherent limitation in evaluation of cervical canal. IMPRESSION: Cervical spine degenerative changes are present with borderline spinal stenosis at C5-6 and C6-7. No acute or pathologic bone process seen. No gross evidence for a significant intra canal abnormality. CT assessment is inherently limited.
--- NOTE | 2022-01-10 14:36 | RAD REPORT ---
EXAM DESCRIPTION: CT - Head Brain Wo Cont - 01/10/2022 2:22 pm CLINICAL HISTORY: unable to ambulate COMPARISON: No comparisons TECHNIQUE: Axial 5 mm thick images of the head were obtained without IV contrast. All CT scans are performed using dose optimization technique as appropriate and may include automated exposure control or mA/KV adjustment according to patient size. FINDINGS: A asymmetry is created by left lateral head tilt and rotation. No intracranial hemorrhage, mass, edema or shift of mid-line structures. No acute infarction changes seen. No cortical edema or sulcal effacement. Atrophy changes and chronic ischemic changes are minima l. Ventricles are in proportion to any volume loss. Arterial and physiologic calcifications are prese nt. Mastoid air cells and visualized portions of the paranasal sinuses are clear. No acute bony findings. IMPRESSION: Negative non-contrast CT head examination for acute finding.
--- NOTE | 2022-01-10 21:41 | P.PN ---
Subjective Date of Service: 01/10/22 Chief Complaint: Lower extremity weakness Subjective: No new changes No acute events overnight. She continues to experience bilateral lower extremity weakness. Neurology has requested an MRI, but we have been unable to obtain it due to her significant back pain when lying flat in the MRI machine. Review of Systems 10-point ROS is otherwise unremarkable Musculoskeletal: Back Pain Neurological: Weakness (bilateral lower extremity), Numbness (bilateral lower extremity) Physical Examination - Vital Signs Temperature: 97.1 F Blood Pressure: 131/59 Pulse: 79 Respirations: 14 Pulse Ox (%): 98 - Physical Exam General: Alert, In no apparent distress, Oriented x3 HEENT: Atraumatic, PERRLA, Mucous membr. moist/pink, EOMI, Sclerae nonicteric Neck: Supple, JVD not distended Respiratory: Clear to auscultation bilaterally, Normal air movement Cardiovascular: Regular rate/rhythm, Normal S1 S2, No gallops, No rubs, No murmurs, Edema (1-2+ bilateral lower extremity) Gastrointestinal: Normal bowel sounds, Soft and benign, Non-distended, No tenderness, No rebound, No guarding Musculoskeletal: No clubbing Integumentary: No rashes Neurological: Normal speech, Sensation intact (but reports paraesthesias in bilateral lower extremities), Cranial nerves 3-12 intact, Normal affect Assessment And Plan - Plan # Bilateral Lower Extremity Paraparesis with Gait Failure - suspect secondary to progressive Parkinson's Disease # 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 However, we are unable to obtain an MRI due to her pain when lying flat. She denies urinary/bowel incontinence or saddle anesthesia. - Consulted Neurology and spoke with Dr. Espinoza - Will try to transfer to [facility] for anesthesia-MRI brain, cervical, thoracic, and lumbar spine imaging - I have completed doc-to-doc with Dr. Alford ([facility] Neurology) and Dr. Artis ([facility] Hospitalist), who have generously accepted her for transfer - If her MRI imagining reveals a pathology that does not require neurosurgical intervention, we will be happy to transfer her back to our facility for further management - Continue carbidopa-levodopa Scott Burch M.D. Discharge Plan: Transfer Time Spent Managing PTS Care (In Minutes): 35
--- NOTE | 2022-01-10 22:12 | RAD REPORT ---
EXAM DESCRIPTION: CT - Thoracic Spine Wo Cont - 01/10/2022 9:48 pm CLINICAL HISTORY: Myelopathy, leg pain COMPARISON: None. TECHNIQUE: Axial 3 mm thick images of the thoracic spine were obtained with sagittal and coronal rec onstruction images generated and reviewed. All CT scans are performed using dose optimization technique as appropriate and may include automated exposure control or mA/KV adjustment according to patient size. FINDINGS: Partial wedge compression the T6-T8 vertebrae noted. Posterior wall height is preserved fo r all 3 levels. No acute fracture suspected. There is a punctate bone density along the posterior mar gin of the T6 inferior endplate. Acute fracture is doubtful. This could be the sequela of old trauma or degenerative spurring. This encroaches slightly into the central canal. Midline canal diameter at this level is 10 mm. Suspected disc herniation at T7-8 is seen encroaching into the central canal. Stenosis is suspected. No other findings suspicious for herniation or significant central canal abnormality. Central canal d etail is inherently limited. The T6-7 and T7-8 disc spaces are significantly narrowed with anterior e ndplate spurring and sclerosis. There is additional disc space narrowing with degenerative gas at T8- 9. No paraspinal mass or hematoma. IMPRESSION: Suspected T7-8 disc herniation encroaching into the central canal and mild spinal stenos is possible cord flattening. Small bone density along the inferior margin T6 encroaches into the central canal causing borderline stenosis to 10 mm. Partial wedge compression of T6-T8 vertebrae suspected to be chronic. If tolerable by the patient, MRI thoracic spine imaging may be helpful to exclude an occult bone proc ess and to allow for better evaluation of the central canal structures and possible T7-8 disc herniat ion.
--- NOTE | 2022-01-10 22:31 | PN ---
Date of Progress Note: 01/10/2022 Time: 1800. Reason: Gait failure and Parkinson. Interval History: The patient was unable to tolerate MRI. Unable to lie flat. She has kyphosis and anterocollis to the neck. We were able to get a CT scan of the cervical spine with demonstrating degenerative changes and borderline stenosis at C5 through C7. Type of study is obviously inherently limited and does not show the spinal cord and that is really what we are interested in. Similarly, CT scan of the brain, no evidence for acute stroke. I spoke with the patient's attending. She may need transfer to the medical center for higher level of care to exclude subacute cord compression and compressive myelopathy. We will order a CT scan thoracic spine tomorrow since 11 mm is generally not critical or at least symptomatic with regard to the cervical spine and the data that we have. Physical Examination: Vital Signs: Afebrile. Vitals are stable. General: Awake, alert, oriented. HEENT: Pupils reactive. Ocular motion full. Visual taylor full. Neurologic: Upper extremity strength full. She is developing footdrop on the right with persistent plantar flexion to the left foot. Strength 4+. Cogwheeling and bradykinesia, right greater than left. Reflexes 2+. She is nonambulatory. Impression: 1. Gait failure. 2. Parkinson. Plan: Check CT thoracic spine. Continue present antiparkinsonian medications. May need transfer for more advanced spine imaging as alluded to. We will continue to follow with you. MICHAEL/RADHA Voice ID: [id number] Report ID: [id number] BERENICE
[2022-01-11 08:23] LABS: Potassium 3.9 mmol/L (3.5-5.1)
[2022-01-11] MEDS: ASPIRIN EC 81 MG TAB PO SCH (08:47)
[2022-01-11] MEDS: LACTULOSE 20 GM/30 ML UCUP PO PRN (08:47)
[2022-01-11] MEDS: PRAMIPEXOLE 0.25 MG TAB PO SCH ×2 (08:47→13:18)
[2022-01-11] MEDS: SPIRONOLACTONE 25 MG TABLET PO SCH (08:48)
[2022-01-11] MEDS: THIAMINE 200 MG/2 ML INJ IVP SCH (08:48)
[2022-01-11] MEDS: CARBIDOPA/LEVODOPA 25/100 TAB PO SCH ×4 (08:48→21:03)
[2022-01-11] MEDS: ENOXAPARIN 40 MG/0.4 ML SQ SCH (08:48)
--- NOTE | 2022-01-11 11:24 | RAD REPORT ---
EXAM DESCRIPTION: RAD - Barium Swallow Modified - 01/11/2022 10:52 am CLINICAL HISTORY: Difficulty swallowing/GE reflux or FINDINGS: No aspiration seen Pharyngeal residue: Trace - mild with thin puree and 1/2 pill with thin liquid in Vallecula and pyri form. 1 second swallow delay, Thin posterior pharyngeal wall, multiple curvatures in esophagus. 2:19 min fluoro time Nineteen fluoroscopic spot series obtained
[2022-01-11] MEDS: HYDROCODONE/APAP 5/325 MG TAB PO PRN (16:09)
[2022-01-11] MEDS: PANTOPRAZOLE 40MG TABLET PO SCH (16:09)
--- NOTE | 2022-01-11 21:29 | PN ---
Date of Progress Note: 01/11/2022 Reason: Gait failure. Interval History: Patient is at least stable. She is normal, in better spirits, seen by Speech Ther apy, had a modified barium swallow. She is safe to eat, mild dietary restrictions with pureed and sm all bites and chin tuck, etc., but no need for n.p.o. No aspiration on modified barium swallow. Did review with [facility]. They accepted transfer since we are unable to get th e imaging that we would like here. We continued to try and press on, however, and we did a CT scan t horacic spine last night that does demonstrate partial wedge compression T6 through 8, posterior wall s were preserved but possibly a disk herniation at T7-8 with some suspected stenosis. We will at [facility] request an MRI of thoracic spine. She might tolerate that. She does seem to be tolerating the in creasing dose of the Mirapex fairly reasonably well. She is little less bradykinetic. Physical Examination: General: She is awake, alert, oriented. HEENT: Pupils reactive. Ocular motion full. Bright full. Neurologic: She has a partial foot drop on the right, 4+ cogwheeling and bradykinesia, right upper e xtremity greater than left. She is able to be move the legs at least in the bed a little better than she was several days ago. Reflexes in the legs are brisk and toes are upgoing little more clearly t yo. Impression: Gait failure, possible thoracic myelopathy. Plan: We will request MRI of thoracic spine. She is pending transfer to the [place] for rimma tional imaging and possible higher level of care. With regard to the Parkinson's, we will increase t he Mirapex up to 1 mg 3 times daily. Continue the Sinemet 25/100 q.i.d. Time: 35 minutes. We will continue to follow with you. MICHAEL/RADHA Voice ID: [id number] Report ID: [id number]
--- NOTE | 2022-01-11 23:42 | P.PN ---
Subjective Date of Service: 01/11/22 Chief Complaint: Lower extremity weakness No acute events overnight. She continues to experience bilateral lower extremity weakness and significant back pain. She is awaiting transfer to [facility] for further MRI imaging and possible higher level of care. Review of Systems 10-point ROS is otherwise unremarkable Musculoskeletal: Back Pain Neurological: Weakness (BLE) Physical Examination - Vital Signs Temperature: 97.2 F Blood Pressure: 133/69 Pulse: 77 Respirations: 16 Pulse Ox (%): 98 Assessment And Plan - Plan - Physical Exam General: Alert, In no apparent distress, Oriented x3 HEENT: Atraumatic, PERRLA, Mucous membr. moist/pink, EOMI, Sclerae nonicteric Neck: Supple, JVD not distended Respiratory: Clear to auscultation bilaterally, Normal air movement Cardiovascular: Regular rate/rhythm, Normal S1 S2, No gallops, No rubs, No murmurs, Edema (1-2+ bilateral lower extremity) Gastrointestinal: Normal bowel sounds, Soft and benign, Non-distended, No tenderness, No rebound, No guarding Musculoskeletal: No clubbing Integumentary: No rashes Neurological: Normal speech, Sensation intact (but reports paraesthesias in bilateral lower extremities), Cranial nerves 3-12 intact, Normal affect # Bilateral Lower Extremity Paraparesis with Gait Failure - suspect secondary to progressive Parkinson's Disease # 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 However, we are unable to obtain an MRI due to her pain when lying flat. She denies urinary/bowel incontinence or saddle anesthesia. - Consulted Neurology and spoke with Dr. Espinoza - Will try to transfer to [facility] for anesthesia-MRI brain, cervical, thoracic, and lumbar spine imaging - I have completed doc-to-doc with Dr. Alford ([facility] Neurology) and Dr. Artis ([facility] Hospitalist), who have generously accepted her for transfer - If her MRI imagining reveals a pathology that does not require neurosurgical intervention, we will be happy to transfer her back to our facility for further management - Continue carbidopa-levodopa and pramipexole per Neuro No new changes today. Awaiting transfer. Scott Burch M.D. Discharge Plan: Transfer ([facility]) Plan to discharge in: Unknown
[2022-01-12] MEDS: SIMETHICONE 80 MG TAB PO PRN (00:09)
[2022-01-12] MEDS: PRAMIPEXOLE 1 MG TAB PO SCH ×4 (00:52→21:09)
[2022-01-12] MEDS: HYDROCODONE/APAP 5/325 MG TAB PO PRN ×2 (02:11→21:10)
[2022-01-12] MEDS: ENOXAPARIN 40 MG/0.4 ML SQ SCH (09:11)
[2022-01-12] MEDS: PANTOPRAZOLE 40MG TABLET PO SCH (09:11)
[2022-01-12] MEDS: SPIRONOLACTONE 25 MG TABLET PO SCH (09:11)
[2022-01-12] MEDS: ASPIRIN EC 81 MG TAB PO SCH (09:11)
[2022-01-12] MEDS: CARBIDOPA/LEVODOPA 25/100 TAB PO SCH ×4 (09:11→21:09)
[2022-01-12] MEDS: THIAMINE 200 MG/2 ML INJ IVP SCH (09:12)
[2022-01-12] MEDS ORDERED: PANTOPRAZOLE 40MG TABLET PO SCH (15:09)
--- NOTE | 2022-01-12 22:55 | P.PN ---
Subjective Date of Service: 01/12/22 Chief Complaint: Lower extremity weakness No acute events overnight. She reports no change in her bilateral lower extremity weakness and significant back pain. She is awaiting transfer to [facility] for further MRI imaging and possible higher level of care. Received call from transfer center that bed is unlikely to become available for the next 48 hours. Review of Systems 10-point ROS is otherwise unremarkable Musculoskeletal: Back Pain Neurological: Weakness (BLE), Numbness (BLE) Physical Examination - Vital Signs Temperature: 97.9 F Blood Pressure: 125/59 Pulse: 96 Respirations: 16 Pulse Ox (%): 95 Assessment And Plan - Plan - Physical Exam General: Alert, In no apparent distress, Oriented x3 HEENT: Atraumatic, PERRLA, Mucous membr. moist/pink, EOMI, Sclerae nonicteric Neck: Supple, JVD not distended Respiratory: Clear to auscultation bilaterally, Normal air movement Cardiovascular: Regular rate/rhythm, Normal S1 S2, No gallops, No rubs, No murmurs, Edema (1-2+ bilateral lower extremity) Gastrointestinal: Normal bowel sounds, Soft and benign, Non-distended, No tenderness, No rebound, No guarding Musculoskeletal: No clubbing Integumentary: No rashes Neurological: Normal speech, Sensation intact (but reports paraesthesias in bilateral lower extremities), Cranial nerves 3-12 intact, Normal affect # Bilateral Lower Extremity Paraparesis with Gait Failure - suspect secondary to progressive Parkinson's Disease # 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 However, we are unable to obtain an MRI due to her pain when lying flat. She denies urinary/bowel incontinence or saddle anesthesia. - Consulted Neurology and spoke with Dr. Espinoza - Will try to transfer to [facility] for anesthesia-MRI brain, cervical, thoracic, and lumbar spine imaging - I have completed doc-to-doc with Dr. Alford ([facility] Neurology) and Dr. Artis ([facility] Hospitalist), who have generously accepted her for transfer - If her MRI imagining reveals a pathology that does not require neurosurgical intervention, we will be happy to transfer her back to our facility for further management - Continue carbidopa-levodopa and pramipexole per Neuro No new changes today. Awaiting transfer. Initiated transfer to other hospitals given significant wait at [facility]. Scott Burch M.D. Physician Review: Patient Assessed, Agree with Above Assessment and Plan
--- NOTE | 2022-01-13 01:49 | PN ---
Date of Progress Note: 01/12/2022 Reason: Gait failure, possible thoracic myelopathy; Parkinson. Interval History: Parkinson, stable. MRI of thoracic spine ordered, but not done today. We will tr y again to get this to happen tomorrow. No side effect with the aggressive titration of Mirapex, but we will keep that at 1 mg t.i.d. and continue the Sinemet as well. Physical Examination: General: She is awake, alert, slight masking with decreased blink rate. Cogwheeling and bradykinesi a, right greater than left. The patient states feel heavy and they tingle. She has an incomplete fo ot drop on the right. Reflexes are slightly brisk at the knees. Toes are more neutral today. Impression: 1.Gait failure, possible thoracic myelopathy. 2.Parkinson disease. Plan: We will again attempt a MRI of thoracic spine. Continue the Sinemet and Mirapex for Parkinson . MICHAEL/RADHA Voice ID: [id number] Report ID: [id number]
[2022-01-13 03:45] LABS: Potassium 4.1 mmol/L (3.5-5.1)
[2022-01-13] MEDS: PRAMIPEXOLE 1 MG TAB PO SCH ×3 (08:33→20:37)
[2022-01-13] MEDS: ENOXAPARIN 40 MG/0.4 ML SQ SCH (08:33)
[2022-01-13] MEDS: ASPIRIN EC 81 MG TAB PO SCH ×2 (08:34→08:35)
[2022-01-13] MEDS: CARBIDOPA/LEVODOPA 25/100 TAB PO SCH ×4 (08:34→20:38)
[2022-01-13] MEDS: PANTOPRAZOLE 40MG TABLET PO SCH (08:34)
[2022-01-13] MEDS: THIAMINE 200 MG/2 ML INJ IVP SCH (08:34)
[2022-01-13] MEDS: SPIRONOLACTONE 25 MG TABLET PO SCH (08:35)
[2022-01-13] MEDS: HYDROCODONE/APAP 5/325 MG TAB PO PRN ×2 (12:10→20:38)
--- NOTE | 2022-01-13 22:05 | PN ---
Date of Progress Note: 01/13/2022 Time: 2009. Reason: Gait failure. Interval History: Status is essentially unchanged. No new imaging to review. We will reorder the MRI of thoracic spine. I think that certainly seems to be the worst area. Check labs in the morning as well. Physical Examination: General: She is awake, alert, oriented. HEENT: Pupils reactive. Ocular motion full. Bright full. Neuro: Moderate generalized bradykinesia. Upper extremity strength greater than 4+ with underlying orthopedic restriction of the right shoulder from prior fracture. Unable to lift her legs of the bed, although she is about 3/5. If she elevate them, she can at least keep them antigravity, and then, they can do drift. Incomplete footdrop on the right, significant bradykinesia of both legs. Reflexes are 2+. Toes appear to be downgoing. Impression: Gait failure. Plan: MRI of thoracic spine tomorrow. Check labs in the morning. She is still pending transfer. We will continue to follow. time : 30 min MICHAEL/RADHA Voice ID: [id number] Report ID: [id number] MTDD
--- NOTE | 2022-01-13 23:32 | P.PN ---
Subjective Date of Service: 01/13/22 Chief Complaint: Lower extremity weakness No acute events overnight. Spoke with her and her , Mr. Clarke, this morning. She reports no change in her symptoms compared to yesterday. She is awaiting transfer for further MRI imaging and possible higher level of care. Review of Systems 10-point ROS is otherwise unremarkable Neurological: Weakness (bilateral lower extremity) Physical Examination - Vital Signs Temperature: 97.1 F Blood Pressure: 109/55 Pulse: 80 Respirations: 16 Pulse Ox (%): 94 Assessment And Plan - Plan - Physical Exam General: Alert, In no apparent distress, Oriented x3 HEENT: Atraumatic, PERRLA, Mucous membr. moist/pink, EOMI, Sclerae nonicteric Neck: Supple, JVD not distended Respiratory: Clear to auscultation bilaterally, Normal air movement Cardiovascular: Regular rate/rhythm, Normal S1 S2, No gallops, No rubs, No murmurs, Edema (1-2+ bilateral lower extremity) Gastrointestinal: Normal bowel sounds, Soft and benign, Non-distended, No tenderness, No rebound, No guarding Musculoskeletal: No clubbing Integumentary: No rashes Neurological: Normal speech, Sensation intact (but reports paraesthesias in bilateral lower extremities), Cranial nerves 3-12 intact, Normal affect # Bilateral Lower Extremity Paraparesis with Gait Failure - suspect secondary to progressive Parkinson's Disease # 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 However, we are unable to obtain an MRI due to her pain when lying flat. She denies urinary/bowel incontinence or saddle anesthesia. - Consulted Neurology and spoke with Dr. Espinoza - Will try to transfer to [facility] for anesthesia-MRI brain, cervical, thoracic, and lumbar spine imaging - I have completed doc-to-doc with Dr. Alford ([facility] Neurology) and Dr. Artis ([facility] Hospitalist), who have generously accepted her for transfer - If her MRI imagining reveals a pathology that does not require neurosurgical intervention, we will be happy to transfer her back to our facility for further management - Continue carbidopa-levodopa and pramipexole per Neuro No new changes today. Awaiting transfer for anesthesia-MRI. Scott Burch M.D.
[2022-01-14 06:31] LABS: Absolute Lymphocytes (CBC) 1.6 K/uL (0.7-4.9); Hematocrit 43.7 % (36.0-45.0); Lymphocytes % 18.3 % (15.3-44.8); MCV 83.2 fL (80-100); MPV 9.1 fL (7.6-11.3); RBC Red Blood Cell Count 5.25 M/uL (3.86-4.86)
[2022-01-14 06:54] LABS: Potassium 4.1 mmol/L (3.5-5.1)
[2022-01-14] MEDS: ENOXAPARIN 40 MG/0.4 ML SQ SCH (08:35)
[2022-01-14] MEDS: PRAMIPEXOLE 1 MG TAB PO SCH ×3 (08:35→20:38)
[2022-01-14] MEDS: SPIRONOLACTONE 25 MG TABLET PO SCH (08:36)
[2022-01-14] MEDS: CARBIDOPA/LEVODOPA 25/100 TAB PO SCH ×3 (08:37→16:41)
[2022-01-14] MEDS: THIAMINE 200 MG/2 ML INJ IVP SCH (08:37)
[2022-01-14] MEDS: PANTOPRAZOLE 40MG TABLET PO SCH (08:37)
[2022-01-14] MEDS: HYDROCODONE/APAP 5/325 MG TAB PO PRN ×2 (08:38→20:38)
[2022-01-14 11:15] LABS: Magnesium 1.9 mg/dL (1.8-2.4); Phosphorus 3.1 mg/dL (2.5-4.9)
--- NOTE | 2022-01-14 17:31 | P.DS ---
Admission Date: 01/05/22 Discharge Date: 01/14/22 Disposition: TRANSFER TO [facility] Comment: [facility] Discharge Condition: FAIR Reason for Admission: Lower extremity weakness Consultations: 1. Neurology Hospital Course: DIAGNOSES: # Bilateral Lower Extremity Paraparesis with Gait Failure - suspect secondary to progressive Parkinson's Disease vs Thoracic Myelopathy # Suspected T7-T8 Disc Herniation with Mild Spinal Stenosis and possible Cord Flattening # Possibly T7-T8 Disc Herniation # Borderline C5-6 and C6-7 Spinal Stenosis # Left Lateral Disc Herniation (L2-L3) HOSPITAL COURSE: Ma. Karyn Osorio is a pleasant 71 year old female with a past medical history significant for Parkinson's disease who was admitted to the [facility] on 01/05/2022 for bilateral lower extremity paraparesis and with gait failure. She was admitted to the Medicine service for further evaluation. Neurology was consulted and she was evaluated by Dr. Espinoza. While hospitalized she underwent the following imaging studies: CT lumbar spine revealed, "left lateral disc herniation L2-3. MRI lumbar spine may be helpful for further evaluation." CT cervical spine revealed, "cervical spine degenerative changes are present with borderline spinal stenosis at C5-6 and C6-7. No acute or pathologic bone process seen. No gross evidence for a significant intra canal abnormality. CT assessment is inherently limited." CT head revealed, "Negative non-contrast CT head examination for acute finding." CT thoracic spine revealed, "suspected T7-8 disc herniation encroaching into the central canal and mild spinal stenosis possible cord flattening. Small bone density along the inferior margin T6 encroaches into the central canal causing borderline stenosis to 10 mm. Partial wedge compression of T6-T8 vertebrae suspected to be chronic. If tolerable by the patient, MRI thoracic spine imaging may be helpful to exclude an occult bone process and to allow for better evaluation of the central canal structures and possible T7-8 disc herniation." Dr. Espinoza felt that her gait failure was secondary to Parkinson's disease, but this may have a component of thoracic myelopathy. She was started on IV dexamethasone for concern of cord compression. She requires an anesthesia-MRI to further evaluate for myopathy. We are unable to obtain that type of imaging here, so a transfer request was made and she was accepted to [facility]. An updated doc-to-doc was completed with Dr. Gentile at [facility], who has generously accepted her for transfer. On 01/14/2022, she was seen on morning rounds and deemed medically stable for discharge. She and her were given the opportunity to ask questions and reported no further questions. Furthermore, all questions were answered to the best of my ability. Today, I personally spent 35 minutes on her case, of which greater than 50% of the time was spent in patient education, counseling, and coordination of care as described above. - Physical Exam General: Alert, In no apparent distress, Oriented x3 HEENT: Atraumatic, PERRLA, Mucous membr. moist/pink, EOMI, Sclerae nonicteric Neck: Supple, JVD not distended Respiratory: Clear to auscultation bilaterally, Normal air movement Cardiovascular: Regular rate/rhythm, Normal S1 S2, No gallops, No rubs, No murmurs, Edema (1-2+ bilateral lower extremity) Gastrointestinal: Normal bowel sounds, Soft and benign, Non-distended, No tenderness, No rebound, No guarding Musculoskeletal: No clubbing Integumentary: No rashes Neurological: Normal speech, Sensation intact (but reports paraesthesias in bilateral lower extremities), Cranial nerves 3-12 intact, Normal affect. 1/5 strength in RLE, 1-2/strength in LLE Vital Signs/Physical Exam: Temp Pulse Resp BP Pulse Ox 97.1 F 81 20 111/57 L 98 01/14/22 12:00 01/14/22 12:00 01/14/22 12:00 01/14/22 12:00 01/14/22 12:00 Laboratory Data at Discharge: WBC 8.50 K/uL (4.3-10.9) 01/14/22 05:45 Hgb 15.2 g/dL (12.0-15.0) H 01/14/22 05:45 Hct 43.7 % (36.0-45.0) 01/14/22 05:45 Plt Count 281 K/uL (152-406) 01/14/22 05:45 PT 10.7 SECONDS (9.5-12.5) 01/05/22 12:35 INR 0.97 01/05/22 12:35 Sodium 130 mmol/L (136-145) L 01/14/22 05:45 Potassium 4.1 mmol/L (3.5-5.1) 01/14/22 05:45 BUN 9 mg/dL (7-18) 01/14/22 05:45 Creatinine 0.52 mg/dL (0.55-1.3) L 01/14/22 05:45 Glucose 97 mg/dL (74-106) 01/14/22 05:45 Phosphorus 3.1 mg/dL (2.5-4.9) 01/14/22 10:45 Magnesium 1.9 mg/dL (1.8-2.4) 01/14/22 10:45 Total Bilirubin 0.9 mg/dL (0.2-1.0) 01/09/22 05:25 AST 28 U/L (15-37) 01/09/22 05:25 ALT 18 U/L (12-78) 01/09/22 05:25 Alkaline Phosphatase 56 U/L (45-117) 01/09/22 05:25 Triglycerides 75 mg/dL (<150) 01/05/22 18:42 Cholesterol 226 mg/dL (<200) H 01/05/22 18:42 HDL Cholesterol 90 mg/dL (40-60) H 01/05/22 18:42 Cholesterol/HDL Ratio 2.51 01/05/22 18:42 Home Medications: Carbidopa/Levodopa [Carbidopa-Levo 25-100 mg Odt] 25 - 100 tab PO TID 01/05/22 Pramipexole [Mirapex*] 1 tab PO TID 01/05/22 Cetirizine HCl [Zyrtec] 10 mg PO BEDTIME 01/06/22 Esomeprazole Magnesium [Nexium 24Hr] 20 mg PO DAILY 01/06/22 Followup: Edna Melvin DO [Primary Care Provider] - Time spent managing pt's care (in minutes): 35
[2022-01-14] MEDS ORDERED: dexAMETHasone 10 MG/ML VIAL IV ONE (17:54)
--- NOTE | 2022-01-14 20:06 | PN ---
Date of Progress Note: 01/14/2022 Time: 1900. Reason: Parkinson's, possible myelopathy. Interval History: The patient is about the same, generally stable. No bowel movement, 3 days. Star t Colace. Labs normal. Still having moderate to prominent generalized bradykinesia. Increase the S inemet to 1.5 q.i.d. Physical Examination: Vital Signs: Afebrile. Vitals stable. Neuro: Awake, alert, oriented. Slight masking. Cogwheeling upper extremities, right greater than l eft. Legs prominently bradykinetic. Strength 4/5 in the legs, full strength in the arms. Impression: 1.Possible myelopathy. 2.Parkinson's. Plan: Additional spine imaging pending. For the Parkinson's, continue Mirapex 1 mg t.i.d., increase Sinemet 25/100, 1.5 q.i.d. We will continue to follow. CLAIRE Voice ID: [id number] Report ID: [id number]
[2022-01-14] MEDS ORDERED: CARBIDOPA/LEVODOPA 25/100 TAB PO SCH (21:00)
[2022-01-14] MEDS ORDERED: DOCUSATE NA 100 MG CAP PO SCH (21:00)
[2022-01-14 22:01] VITALS: O2SAT 97
[2022-01-15 00:44] VITALS: BP 115/56; TEMP 96.8
== END 2022-01-15 02:00 | disposition short-term general hospital (02) | DRG 552 ==
LOC: ER 10:56 → OBSVTOIN 17:03 → ERHOLD 17:03 → 4TH 22:10
PROVIDERS: ADMIT Hospitalist; ATTEND Internal Medicine
DX: M48.04 Spinal stenosis, thoracic region (principal); G99.2 Myelopathy in diseases classified elsewhere; N39.0 Urinary tract infection, site not specified; G82.20 Paraplegia, unspecified; G95.20 Unspecified cord compression; G20 Parkinson's disease; E87.6 Hypokalemia; E83.52 Hypercalcemia; E66.9 Obesity, unspecified; M48.02 Spinal stenosis, cervical region; R13.10 Dysphagia, unspecified; R27.0 Ataxia, unspecified; Z68.38 Body mass index [BMI] 38.0-38.9, adult; Z79.899 Other long term (current) drug therapy; Z20.822 Contact with and (suspected) exposure to COVID-19
CPT/HCPCS: 36415; 70450; 71045; 71250; 72125; 72128; 72131; 74230; 80048; 80053; 80061; 80076; 81001; 81003; 82607; 83036; 83735; 83880; 84100; 84132; 84439; 84443; 84484; 85025; 85610; 85652; 87040; 87086; 87088; 87811; 92610; 92611; 93005; 93306; 93970; 96365; 96366; 96375; 97110; 97116; 97161; 97530; 99285; J0692; J1100; J1644; J1650; J1940; J2405; J3411; U0003